=== PATIENT | male | born 1955 | race Caucasian/White ===

== ENCOUNTER 2016-06-25 19:44 | Emergency (ER) | payer OTHER ==
[~2016-06-25] VITALS: Ht 185.4 cm; Wt 153.9 kg
[~2016-06-25 19:44] MED LIST: AMLODIPINE BESY10 MG PO; ASPIR 8181 M1 PO; ATORVASTATIN CA80 MG PO; CLOBETASOL PROP60 G1 TP; DAILY VALUE1 EACH PO; LOPRESSOR100 M1 PO; PERCOCET 5/31 TABLET PO; PRILOSEC20 MG PO; VITAMIN E400 UNIT PO
[2016-06-25 21:00] VITALS: BP 106/97
== END 2016-06-25 21:01 | disposition home or self-care (01) ==
LOC: EME → EDBD 19:44 → EME 19:44
PROC: 0RSJXZZ Reposition Right Shoulder Joint, External Approach (ICD-10-PCS; principal; 2016-06-25)
DX: S43.014A Anterior dislocation of right humerus, initial encounter (principal); W18.2XXA Fall in (into) shower or empty bathtub, initial encounter; Y93.E1 Activity, personal bathing and showering; Y92.002 Bathroom of unspecified non-institutional (private) residence as the place of occurrence of the external cause; I10 Essential (primary) hypertension; Z79.82 Long term (current) use of aspirin; Z87.891 Personal history of nicotine dependence
CPT/HCPCS: 73030; 99281; 99284; J3010

== ENCOUNTER 2017-04-24 01:55 | Emergency (ER) | payer OTHER ==
[~2017-04-24] VITALS: Ht 182.9 cm; Wt 154.6 kg
[2017-04-24] MEDS ORDERED: NORCO 5/3251 TABLET PO (02:55)
[2017-04-24 03:14] VITALS: BP 150/77
== END 2017-04-24 03:15 | disposition home or self-care (01) ==
LOC: EME 01:55
DX: S40.012A Contusion of left shoulder, initial encounter (principal); S43.402A Unspecified sprain of left shoulder joint, initial encounter; W10.9XXA Fall (on) (from) unspecified stairs and steps, initial encounter; F10.99 Alcohol use, unspecified with unspecified alcohol-induced disorder; I10 Essential (primary) hypertension; Z79.82 Long term (current) use of aspirin
CPT/HCPCS: 73030; 99281; 99284